=== PATIENT | female | born 1965 ===

== ENCOUNTER 2018-02-03 12:52 | Emergency (ER) | payer MEDICAID, OTHER, SELFPAY ==
[2018-02-03 13:03] VITALS: TEMP 98
--- NOTE | 2018-02-03 13:42 | C.PDOC ---
History Of Present Illness 52 y/o F c no PMHx p/w palpitations x 2 days. States palpitations are intermittent, associated with emotional stress. While speaking about it, patient appears to be getting tearful. Patient states she has had similar symptoms 4 years ago, came here, had negative work up and never followed up outpatient. She denies fever, chills, chest pain, sore throat, vomiting, dyspnea , leg swelling, recent travel, diaphoresis. Time Seen by Provider: 02/03/18 13:09 Chief Complaint (Nursing): Chest Pain Past Medical History Vital Signs: Last Vital Signs Temp 98.0 F 02/03/18 12:59 Pulse 64 02/03/18 12:59 Resp 18 02/03/18 12:59 BP 128/85 02/03/18 12:59 Pulse Ox 100 02/03/18 14:09 Family History: States: No Known Family Hx - Social History Hx Alcohol Use: No Hx Substance Use: No - Immunization History Hx Tetanus Toxoid Vaccination: No Hx Influenza Vaccination: No Hx Pneumococcal Vaccination: No Review Of Systems Except As Marked, All Systems Reviewed And Found Negative. Constitutional: Negative for: Fever Cardiovascular: Negative for: Chest Pain Physical Exam - Physical Exam Additional Physical Exam Comments: Gen: NAD Head: NC/AT Eyes: PERRL ENT: MMM Neck: Supple Chest: No deformity CV: Regular rate Lungs: CTA b/l Abd: Soft, NT Back: No CVA tenderness Extremities: L knee edema (patient states chronic for 5 years) Skin: No rash Neuro: Alert, no focal deficit ED Course And Treatment - Laboratory Results Result Diagrams: 02/03/18 13:53 02/03/18 13:53 O2 Sat by Pulse Oximetry: 100 Medical Decision Making Medical Decision Making: EKG Sinus rhythm, 54 bpm, no ST/T wave changes FINDINGS: LUNGS: The lungs are well inflated and clear. PLEURA: No significant pleural effusion identified, no pneumothorax apparent. CARDIOVASCULAR: Normal. OSSEOUS STRUCTURES: No significant abnormalities. VISUALIZED UPPER ABDOMEN: Normal. OTHER FINDINGS: None. IMPRESSION: No active pulmonary disease. Labs unremarkable. Discharged home, f/u primary care, return to ED for worsening pain, dyspnea, diaphoresis, syncope, or any other problem. Disposition - Disposition Disposition: HOME/ ROUTINE Disposition Time: 14:54 Condition: STABLE Instructions: Palpitations Forms: [facility] (Fijian) - Clinical Impression Clinical Impression: Palpitations
[2018-02-03 13:58] LABS: BASO % 0.7 % (0.0-2.0); EOS # 0.2 K/uL (0.0-0.7); EOS % 4.1 % (0.0-4.0); HEMOGLOBIN 13.1 g/dL (11.0-16.0); LYMPH # 1.6 K/uL (1.0-4.3); MEAN CELL VOLUME 95.4 fL (81.0-99.0); MEAN CORPUSCULAR HEMOGLOBIN 32.4 pg (27.0-31.0); MEAN PLATELET VOLUME 8.2 fL (7.2-11.7); MONO # 0.5 K/uL (0.0-0.8); MONO % 12.7 % (0.0-10.0); NEUT # 1.7 K/uL (1.8-7.0); NEUT % 42.5 % (50.0-75.0); NRBC % 0.1 % (0.0-2.0); RBC 4.05 Mil/uL (3.80-5.20); RED CELL DISTRIBUTION WIDTH 14.1 % (11.5-14.5)
[2018-02-03 14:25] LABS: ALBUMIN 3.7 g/dL (3.5-5.0); ALT/SGPT 17 U/L (9-52); AST/SGOT 32 U/L (14-36); BLOOD UREA NITROGEN 15 mg/dL (7-17); CALCIUM 8.6 mg/dl (8.6-10.4); GFR AFRICAN-AMERICAN > 60; GFR NON-AFRICAN AMERICAN > 60
[2018-02-03 14:34] LABS: CK-MB 0.81 ng/mL (0.0-3.38)
--- NOTE | 2018-02-03 14:40 | RAD ---
HISTORY: Palpitations COMPARISON: No prior. FINDINGS: LUNGS: The lungs are well inflated and clear. PLEURA: No significant pleural effusion identified, no pneumothorax apparent. CARDIOVASCULAR: Normal. OSSEOUS STRUCTURES: No significant abnormalities. VISUALIZED UPPER ABDOMEN: Normal. OTHER FINDINGS: None. IMPRESSION: No active pulmonary disease.
[2018-02-03 14:56] LABS: HCG,QUALITATIVE URINE NEGATIVE (NEGATIVE)
[2018-02-03 15:15] LABS: URINE BILIRUBIN NEGATIVE (NEGATIVE); URINE CLARITY Hazy (Clear); URINE COLOR YELLOW (YELLOW); URINE GLUCOSE (UA) NEGATIVE (Normal)
[2018-02-03 15:16] LABS: SQUAMOUS EPITHIAL 13 /hpf (0-5); URINE BACTERIA OCC (<OCC); URINE BLOOD NEGATIVE (NEGATIVE); URINE LEUKOCYTE ESTERASE NEGATIVE Leu/uL (Negative); URINE PROTEIN NEGATIVE (NEGATIVE); URINE UROBILINOGEN NORMAL mg/dL (0.2-1.0)
[2018-02-03 15:54] VITALS: BP 137/85; PULSE 78; RESP 16; O2SAT 99
--- NOTE | 2018-02-04 22:34 | CARD ---
APPROVED REPORT EKG Measurement Heart [id number] DC [id number] <Conclusion> Sinus bradycardia Low voltage QRS Borderline ECG
== END 2018-02-03 15:53 | disposition home or self-care (01) ==
LOC: C.ER 12:52
DX: R00.2 Palpitations (principal)